=== PATIENT | male | born 1955 | race Caucasian/White ===

== ENCOUNTER 2017-07-31 08:52 | Emergency (ER) | payer MEDICAID ==
[2017-07-31 08:59] VITALS: PULSE 96; RESP 16; O2SAT 96
--- NOTE | 2017-07-31 09:55 | EDPHY ---
General Narrative: CHIEF COMPLAINT: Out of Neurontin, abdominal discomfort HISTORY OF PRESENT ILLNESS: Patient complains of being out of his Neurontin. He says that he ran out 1 week ago. He is not entirely sure what his dosing is, but says that he takes 5 of the pills that he has at night, and 3-4 them in the morning. This is due to neuropathy. He is normally prescribed a medication at [facility]. He says that there was a miscommunication with a refill that was not placed. He has called them and has an appointment tomorrow at 12:00 p.m.. He has no chest pain or shortness of breath. He does have some abdominal discomfort with this. His left foot has been twitching more than the right. He has no numbness or tingling. No difficulty ambulating. No incontinence of bowel or bladder. No other associated complaints or modifying factors. REVIEW OF SYSTEMS: Ten systems reviewed and are negative unless otherwise noted in the HPI PCP: [facility] SPECIALISTS: None PAST MEDICAL HISTORY: Prediabetic, bipolar disorder, peripheral neuropathy PAST SURGICAL HISTORY: Bilateral carpal tunnel release in 2015 SOCIAL HISTORY: Nonsmoker. No alcohol use. Daily marijuana use. Works as a metal painter FAMILY HISTORY: Noncontributory EXAMINATION General Appearance: Alert, no distress Head: normocephalic, atraumatic Eyes: Pupils equal and round, no conjunctival pallor or injection ENT, Mouth: Mucous membranes moist. Airway patent Neck: Normal inspection, supple, non-tender Respiratory: Lungs are clear to auscultation. No wheezing, rhonchi or crackles Cardiovascular: Regular rate and rhythm. No murmur Gastrointestinal: Abdomen is soft and nontender. No tympany. No rigidity. No distention. No guarding. Benign abdominal examination Neurological: GCS 15. Cranial nerves 2-12 grossly intact. A&O, nonfocal, normal gait. Strength is symmetric in all 4 limbs. Normal light sensation on the top of both feet. Normal light sensation on the bottom of both feet. Normal proprioception of the great toes Skin: Warm and dry, no rash. No petechiae or purpura Extremities: Nontender, no pedal edema Psychiatric: Mood and affect normal DIFFERENTIAL DIAGNOSES: Including but not limited to Neurontin withdrawal, neuropathy, paresthesia, electrolyte disturbance, lithium toxicity, dehydration, gastritis MDM: 9:50 a.m. Abdominal discomfort with twitching of the feet likely due to Neurontin withdrawal. The patient has been off of his Neurontin for 1 week. He has no chest pain or shortness of breath. His abdominal examination is completely benign. His vital signs were well within normal limits. I have consult to the pharmacy to perform a medication reconciliation to verify the dose he was on, and so that we can safely resume his medication at an appropriate dose. He is in no acute distress. Laboratory studies have been ordered. Because he is on lithium I will check the level for this. 10:08 a.m. Case discussed with the pharmacist. They have verified that the patient's dosing was 600 mg in the morning and 1200 mg at night of his gabapentin. They recommend that we resume this without change. I have ordered 600 mg dose by mouth. 11:12 a.m. Patient's laboratory studies are negative. The lithium level is pending. I have re-evaluated the patient is feeling well. 11:30 a.m. [place] level was within normal limits. He is discharged home stable condition. He will [facility] with an appointment that he had made. We discussed ED precautions. I suspect that all the symptoms related to abruptly stopping his Neurontin for the past week. We discussed returning to the emergency department for any worsening of his abdominal pain, for any onset of chest pain. He is comfortable this plan. I answered all his questions prior to discharge. SUPERVISION: Patient was independently examined, but I discussed the case with my secondary supervising physician Dr. Goldsmith - History Smoking Status: Former smoker - Objective Vital Signs: Initial Vital Signs Temperature (C) 98.1 F 07/31/17 08:56 Heart Rate 96 07/31/17 08:56 Respiratory Rate 16 07/31/17 08:56 Blood Pressure 135/78 H 07/31/17 08:56 O2 Sat (%) 96 07/31/17 08:56 O2 Delivery Mode Room Air Allergies/Adverse Reactions: No Known Allergies Allergy (Unverified 07/31/17 08:55) Home Medications: Medication Instructions Recorded Cyclobenzaprine [Flexeril 10 MG 10 mg PO BID 01/02/13 (RX)] Acetaminophen [Tylenol 325mg (*)] 325 mg PO DAILY PRN 07/31/17 Albuterol [Proventil Inhaler HFA 1 - 2 puffs IH Q4-6PRN PRN 07/31/17 (*)] Gabapentin [Neurontin 300 MG (*)] 1,200 mg PO HS 07/31/17 Gabapentin [Neurontin 300 MG (*)] 300 mg PO AD #180 cap 07/31/17 Gabapentin [Neurontin 300 MG (*)] 600 mg PO DAILY 07/31/17 [place] Carbonate [[place] 300 mg PO TID 07/31/17 Carbonate Cap 300 mg (*)] Multivitamins [Multivitamin (*)] 1 each PO DAILY 07/31/17 Departure - Departure Disposition: Home, Routine, Self-Care Clinical Impression: Neuropathy Condition: Good Instructions: Peripheral Neuropathy (ED) Additional Instructions: 1. Follow [facility] as scheduled [facility] 2. Resume your Neurontin as discussed and prescribed 3. ED precautions as discussed Referrals: [facility],. [Clinic] - As per Instructions Prescriptions: Gabapentin [Neurontin 300 MG (*)] 300 mg PO AD #180 cap
[2017-07-31] MEDS ORDERED: GABAPENTIN 300 MG CAP PO ONE (10:08)
[2017-07-31 10:12] LABS: % IMMATURE GRANULYOCYTES 0.3 % (0.0-1.1); ABSOLUTE IMMATURE GRANULOCYTES 0.03 10^3/uL (0.00-0.10); ADD DIFF? NO; ADD MORPH? NO; ADD SCAN? NO; ATYPICAL LYMPHOCYTE FLAG 0 (0-99); FRAGMENT RBC FLAG 0 (0-99); HEMATOCRIT 46.9 % (40.0-51.0); HEMOGLOBIN 16.9 g/dL (13.7-17.5); LEFT SHIFT FLG 0 (0-99); LIPEMIA HEMOLYSIS FLAG 90 (0-99); MEAN CELL HEMOGLOBIN 32.4 pg (27.9-34.1); MEAN CELL VOLUME 89.8 fL (81.5-99.8); MEAN PLATELET VOLUME 8.6 fL (8.7-11.7); PLATELET CLUMPS FLAG 0 (0-99); PLATELET COUNT 298 10^3/uL (150-400); RED BLOOD CELL COUNT 5.22 10^6/uL (4.40-6.38); RED CELL DISTRIBUTION WIDTH 13.1 % (11.5-15.2)
[2017-07-31 10:37] LABS: ALANINE AMINOTRANSFERASE 34 IU/L (21-72); ALBUMIN 4.3 g/dL (3.5-5.0); ALKALINE PHOSPHATASE 76 IU/L (38-126); ANION GAP 13 mEq/L (8-16); ASPARTATE AMINOTRANSFERASE 21 IU/L (17-59); BILIRUBIN,TOTAL 0.9 mg/dL (0.1-1.4); BILIRUBIN-CONJUGATED 0.3 mg/dL (0.0-0.5); BILIRUBIN-UNCONJUGATED 0.6 mg/dL (0.0-1.1); CALCIUM 10.1 mg/dL (8.5-10.4); CARBON DIOXIDE 19 mEq/l (22-31); CHLORIDE 110 mEq/L (97-110); CREATININE 0.9 mg/dL (0.7-1.3); GLOMERULAR FILTRATION RATE > 60; GLUCOSE 86 mg/dL (70-100); POTASSIUM 4.7 mEq/L (3.5-5.2); SODIUM 142 mEq/L (134-144); TOTAL PROTEIN 7.1 g/dL (6.3-8.2)
[2017-07-31 11:01] LABS: LITHIUM 0.6 mEq/L (0.6-1.2)
[2017-07-31 11:20] VITALS: BP 116/91; TEMP 98.8
== END 2017-07-31 11:19 | disposition home or self-care (01) ==
DX: G62.9 Polyneuropathy, unspecified (principal); Z87.891 Personal history of nicotine dependence

== ENCOUNTER → 2017-12-24 | Outpatient (CLI) | payer MEDICAID | LOC: FIMAGING 15:41 | DX: Z11.1 Encounter for screening for respiratory tuberculosis (principal); R76.11 Nonspecific reaction to tuberculin skin test without active tuberculosis; J98.4 Other disorders of lung; M89.38 Hypertrophy of bone, other site ==

== ENCOUNTER → 2017-12-30 | Outpatient (CLI) | payer MEDICAID | LOC: FIMAGING 10:12 | DX: J98.4 Other disorders of lung (principal); R76.11 Nonspecific reaction to tuberculin skin test without active tuberculosis ==

== ENCOUNTER 2018-02-25 10:30 | Emergency (ER) | payer MEDICAID ==
[2018-02-25 10:49] VITALS: BP 118/83
--- NOTE | 2018-02-25 11:27 | EDPHY ---
H & P Stated Complaint: patches of itchy rash area x 9 days Time Seen by Provider: 02/25/18 11:10 HPI/ROS: CHIEF COMPLAINT: Pruritic rash bilateral legs x9 days HISTORY OF PRESENT ILLNESS: The patient presents to the ED with a pruritic rash to his legs for the past 9 days. The patient reports he was exposed to poison terra. The patient denies significant past medical history. He has been using calamine lotion without improvement of his symptoms. The patient denies any upper extremity rash, fever, cough, abdominal pain, vomiting or additional medical complaints. REVIEW OF SYSTEMS: A comprehensive 10 point review of systems is otherwise negative aside from elements mentioned in the history of present illness. Source: Patient Exam Limitations: No limitations - Personal History Tetanus Vaccine Date: 2009 - Medical/Surgical History Hx Asthma: Yes Hx Chronic Respiratory Disease: No Hx Diabetes: No Hx Cardiac Disease: No Hx Renal Disease: No Hx Cirrhosis: No Hx Alcoholism: Yes Hx HIV/AIDS: No Hx Splenectomy or Spleen Trauma: No Other PMH: mental health, pre diabetic. psh- carpal tunnel, hemorrhoid - Social History Smoking Status: Former smoker - Physical Exam Exam: General Appearance: Alert, no distress Eyes: Pupils equal and round no pallor or injection ENT, Mouth: Poor dentition Respiratory: There are no retractions, lungs are clear to auscultation Cardiovascular: Regular rate and rhythm Gastrointestinal: Abdomen is soft and nontender, no masses, bowel sounds normal Neurological: 5/5 strength all 4 extremities Skin: Rash on lower extremities consistent with contact dermatitis Musculoskeletal: Neck is supple nontender Extremities: symmetrical, full range of motion Constitutional: Initial Vital Signs Temperature (C) 37.0 C 02/25/18 10:47 Heart Rate 88 02/25/18 10:47 Respiratory Rate 18 02/25/18 10:47 Blood Pressure 118/83 H 02/25/18 10:47 O2 Sat (%) 97 02/25/18 10:47 O2 Delivery Mode Room Air Allergies/Adverse Reactions: No Known Allergies Allergy (Verified 02/25/18 10:46) Home Medications: Medication Instructions Recorded Cyclobenzaprine [Flexeril 10 MG 10 mg PO BID 01/02/13 (RX)] Acetaminophen [Tylenol 325mg (*)] 325 mg PO DAILY PRN 07/31/17 Albuterol [Proventil Inhaler HFA 1 - 2 puffs IH Q4-6PRN PRN 07/31/17 (*)] Gabapentin [Neurontin 300 MG (*)] 1,200 mg PO HS 07/31/17 Gabapentin [Neurontin 300 MG (*)] 300 mg PO AD #180 cap 07/31/17 Gabapentin [Neurontin 300 MG (*)] 600 mg PO DAILY 07/31/17 [place] Carbonate [[place] 300 mg PO TID 07/31/17 Carbonate Cap 300 mg (*)] Multivitamins [Multivitamin (*)] 1 each PO DAILY 07/31/17 predniSONE [prednisone 20mg (RX)] 3 tab PO AD #24 tab 02/25/18 Medical Decision Making ED Course/Re-evaluation: The patient presents to the ED with a rash secondary to contact dermatitis from poison terra. The patient will be started on oral steroids with a tapering dose for the next 12 days. Departure - Departure Disposition: Home, Routine, Self-Care Clinical Impression: Contact dermatitis Condition: Good Instructions: Contact Dermatitis (ED), Poison Terra (ED) Additional Instructions: 1. Take prednisone as directed for next 12 days. 2. Return to the ED for markedly worsening symptoms, fever, pain or other concerns. 3. Please follow up with your primary care provider for a recheck in the next 1- 2 weeks. Referrals: [facility] [Other] - As per Instructions
== END 2018-02-25 11:40 | disposition home or self-care (01) ==
DX: L25.9 Unspecified contact dermatitis, unspecified cause (principal); J45.909 Unspecified asthma, uncomplicated; Z87.891 Personal history of nicotine dependence

== ENCOUNTER 2018-04-21 08:43 | Emergency (ER) | payer MEDICAID ==
[2018-04-21] MEDS ORDERED: OXYCODONE/APAP 5/325 TAB PO ONE (09:08)
--- NOTE | 2018-04-21 09:08 | EDPHY ---
H & P Stated Complaint: umbilical hernia repair 04/16 ecchymosis and pain Time Seen by Provider: 04/21/18 08:51 HPI/ROS: CHIEF COMPLAINT: Postoperative pain HISTORY OF PRESENT ILLNESS: This is a 63-year-old male who is postop day number 4 status post repair of umbilical hernia (04/16/18) by Dr. Olmos. He presents this morning concerned about increasing pain in the region of his umbilicus. Yesterday the pain seemed to worsen. He has been taking oxycodone 3 times daily and states that he has 3 tablets left. He has not taken any pain medications since last night. He has had no drainage from the wound. He does notice surrounding bruising. No fever. No nausea or vomiting. He is moving his bowels regularly and urinating without difficulty. REVIEW OF SYSTEMS: A ten system review of systems was performed and is negative with the exception of the items mentioned in the HPI. Past medical history: 1. Umbilical hernia 2. Hypothyroidism 3. 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 He quit smoking decades ago. General Appearance: Alert. Vital signs reviewed. Eyes: Pupils equal and round, no conjunctival injection, no discharge. Anicteric. ENT, Mouth: Mucous membranes are moist, dentition in poor repair Respiratory: Lungs are clear to auscultation; no wheezes, rales, or rhonchi. Cardiovascular: Regular rate and rhythm; no murmur, rub, or gallop. Gastrointestinal: Abdomen is soft. There is purple/L ecchymoses surrounding the umbilicus and extending to radius of 6 cm. Skin glue visible around the umbilicus. No palpable herniation. He states that it is tender when I palpate around the surgical site--I feel no masses or abnormalities and he speaks with me throughout the exam. Skin: Warm and dry, no rashes on exposed skin, normal color. Neurological: Alert and oriented. Moving all four extremities easily and equally. Psychiatric: Normal affect. - Personal History Current Tetanus Diphtheria and Acellular Pertussis (TDAP): Yes Tetanus Vaccine Date: 2009 - Medical/Surgical History Hx Asthma: Yes Hx Chronic Respiratory Disease: No Hx Diabetes: No Hx Cardiac Disease: No Hx Renal Disease: No Hx Cirrhosis: No Hx Alcoholism: Yes Hx HIV/AIDS: No Hx Splenectomy or Spleen Trauma: No Other PMH: mental health, pre diabetic. psh- carpal tunnel, hemorrhoid cva. umbilical hernia repair - Social History Smoking Status: Former smoker Constitutional: Initial Vital Signs Temperature (C) 37.1 C 04/21/18 08:46 Heart Rate 94 04/21/18 08:46 Respiratory Rate 17 04/21/18 08:46 Blood Pressure 157/131 H 04/21/18 08:46 O2 Sat (%) 95 04/21/18 08:46 O2 Delivery Mode Room Air Allergies/Adverse Reactions: No Known Allergies Allergy (Verified 04/21/18 08:45) Home Medications: Medication Instructions Recorded Cyclobenzaprine [Flexeril 10 MG 10 mg PO TID PRN 01/02/13 (*)] Albuterol [Proventil Inhaler HFA 1 - 2 puffs IH Q4-6PRN PRN 07/31/17 (*)] Gabapentin [Neurontin 300 MG (*)] 1,200 mg PO HS 07/31/17 Gabapentin [Neurontin 300 MG (*)] 600 mg PO DAILY 07/31/17 [place] Carbonate [[place] 300 mg PO TID 07/31/17 Carbonate Cap 300 mg (*)] Multivitamins [Multivitamin (*)] 1 each PO DAILY 07/31/17 Cetirizine [ZyrTEC 10 mg (*)] 10 mg PO DAILY 04/16/18 Diclofenac Sodium [Voltaren 75 MG 75 mg PO BID PRN 04/16/18 (*)] Gemfibrozil [Lopid 600 MG (*)] 600 mg PO BIDAC 04/16/18 Hydrocodone/APAP 5/325 [[place] 1 - 2 tab PO Q4HRS PRN #30 tab 04/16/18 5/325 (*)] Triamcinolone 0.1% [Triamcinolone 1 cam[place] TP BID 04/16/18 0.1% Cream (*)] Oxycodone HCl 5 mg PO Q6 PRN #15 capsule 04/21/18 Medical Decision Making ED Course/Re-evaluation: Patient is concerned about pain at the site of his surgical incision. I find nothing concerning at the time of my exam. I have spoken with his surgeon, Dr. Olmos, and based upon my description of the wound he agrees that this patient can be discharged home with reassurance. The patient was reassured and felt comfortable returning home. I do not find evidence of any wound dehiscence, infection such as abscess or cellulitis, and do not think that there is recurrent hernia. - Data Points Medications Given: Discontinued Medications Oxycodone/Acetaminophen (Percocet 5/325) 1 tab PO EDNOW ONE Stop: 04/21/18 09:09 Last Admin: 04/21/18 09:12 Dose: 1 tab Departure - Departure Disposition: Home, Routine, Self-Care Clinical Impression: Postoperative abdominal pain Abdominal pain Qualifiers: Abdominal location: periumbilical Qualified Code(s): R10.33 - Periumbilical pain Condition: Good Instructions: Pain Management (ED) Additional Instructions: Your blood pressure was high in the emergency department. Please have this rechecked by her primary care doctor. Be sure that you keep your appointment with Dr. Olmos. If you develop fever, severe persistent abdominal pain, vomiting, redness or warmth of the incision, drainage from the incision--you should contact Dr. Olmos and be re-evaluated. I am writing you another prescription for pain medication. Use it as you have been using the pain medication prescribed by Dr. Olmos. You will not be able to receive another prescription for pain medicine from the emergency department. Referrals: Chris Carty PA [Primary Care Provider] - As per Instructions Moises Olmos MD [Medical Doctor] - As per Instructions Prescriptions: Oxycodone HCl 5 mg PO Q6 PRN #15 capsule PRN Reason: Pain, Breakthrough
[2018-04-21 10:12] VITALS: BP 164/104
== END 2018-04-21 10:39 | disposition home or self-care (01) ==
DX: G89.18 Other acute postprocedural pain (principal); R10.9 Unspecified abdominal pain; Z87.891 Personal history of nicotine dependence

== ENCOUNTER 2018-10-05 06:51 | Emergency (ER) | payer MEDICAID, OTHER ==
--- NOTE | 2018-10-05 06:59 | EDPHY ---
H & P Time Seen by Provider: 10/05/18 06:55 - Personal History Tetanus Vaccine Date: 2009 - Medical/Surgical History Hx Asthma: Yes Hx Chronic Respiratory Disease: No Hx Diabetes: No Hx Cardiac Disease: No Hx Renal Disease: No Hx Cirrhosis: No Hx Alcoholism: Yes Hx HIV/AIDS: No Hx Splenectomy or Spleen Trauma: No Other PMH: mental health, pre diabetic. psh- carpal tunnel, hemorrhoid cva. umbilical hernia repair - Social History Smoking Status: Former smoker Allergies/Adverse Reactions: No Known Allergies Allergy (Verified 04/21/18 08:45) Home Medications: Medication Instructions Recorded Cyclobenzaprine [Flexeril 10 MG 10 mg PO TID PRN 01/02/13 (*)] Albuterol [Proventil Inhaler HFA 1 - 2 puffs IH Q4-6PRN PRN 07/31/17 (*)] Gabapentin [Neurontin 300 MG (*)] 1,200 mg PO HS 07/31/17 Gabapentin [Neurontin 300 MG (*)] 600 mg PO DAILY 07/31/17 [place] Carbonate [[place] 300 mg PO TID 07/31/17 Carbonate Cap 300 mg (*)] Multivitamins [Multivitamin (*)] 1 each PO DAILY 07/31/17 Cetirizine [ZyrTEC 10 mg (*)] 10 mg PO DAILY 04/16/18 Diclofenac Sodium [Voltaren 75 MG 75 mg PO BID PRN 04/16/18 (*)] Gemfibrozil [Lopid 600 MG (*)] 600 mg PO BIDAC 04/16/18 Hydrocodone/APAP 5/325 [[place] 1 - 2 tab PO Q4HRS PRN #30 tab 04/16/18 5/325 (*)] Triamcinolone 0.1% [Triamcinolone 1 [place] TP BID 04/16/18 0.1% Cream (*)] Oxycodone HCl 5 mg PO Q6 PRN #15 capsule 04/21/18 Medical Decision Making ED Course/Re-evaluation: CHIEF COMPLAINT: Feels like psych meds are not working HISTORY OF PRESENT ILLNESS: 63-year-old homeless gentleman who was just [facility]. It is extremely cold outside. He called the ambulance because he is feeling like his psychiatric meds are not working well for him. Consequently, he was brought to the hospital. He has several other nonspecific in chronic complaints but mainly he states that he wants to have his psychiatric meds reviewed because they are not working any feels anxious. REVIEW OF SYSTEMS: A comprehensive 10 system review of systems is otherwise negative aside from elements mentioned in the history of present illness and medical decision making. PHYSICAL EXAM: HR, BP, O2 Sat, RR. Temp noted General Appearance: Alert, well hydrated, appropriate, and non-toxic appearing. Head: Atraumatic without scalp tenderness or obvious injury Eyes: Pupils equal, round, reactive to light and accommodation, EOMI, no trauma , no injection. Ears: Clear bilaterally, no perforation, normal landmarks Nose: Atraumatic, no rhinorrhea, clear. Throat: There is no erythema or exudates, no lesions, normal tonsils, mucus membranes moist. Neck: Supple, 2+ carotid upstroke, nontender, no lymphadenopathy. Respiratory: No retractions, no distress, no wheezes, and no accessory muscle use. Lungs are clear to auscultation bilaterally. Cardiovascular: Regular rate and rhythm, no murmurs, rubs, or gallops. Bilateral carotid, radial, dorsalis pedis, and posterior tibial pulses intact. Good capillary refill all extremities. Gastrointestinal: Abdomen is soft, nontender, non-distended, no masses, no rebound, no guarding, no peritoneal signs. Musculoskeletal: Normal active ROM of all extremities, atraumatic. Neurological: Alert, appropriate, and interactive. The patient has normal DTRs and non-focal cranial nerves, motor, sensory, and cerebellar exam. Skin: No rashes, good turgor, no nodules on palpation. Past medical history: Psychiatric problems Past surgical history: Noncontributory Family history: Noncontributory Social history: Homeless, unemployed, denies tobacco or alcohol or drug use and claims sobriety for the last 25 years. DIAGNOSTICS/PROCEDURES/CRITICAL CARE TIME: Not indicated DIFFERENTIAL DIAGNOSIS: Includes but is not limited to: Generalized anxiety, medication problems, malingering, noncompliance with medicines MEDICAL DECISION MAKING: This patient is here because extremely cold outside he is homeless. He thinks that he would like some psychiatric medications adjusted. I am discharging him immediately to the outpatient mental health services where he can get the evaluation that he needs. Departure - Departure Disposition: Home, Routine, Self-Care Clinical Impression: Anxiety, Malingering Condition: Good Instructions: Mood Disorders (ED) Additional Instructions: We are sending you in the cab to mental health outpatient services Referrals: Patient,NotPresent [Primary Care Provider] - As per Instructions
[2018-10-05 07:13] VITALS: BP 159/89
== END 2018-10-05 07:13 | disposition home or self-care (01) ==
LOC: EDUNIT#
DX: F41.9 Anxiety disorder, unspecified (principal); Z76.5 Malingerer [conscious simulation]; Z59.0 Homelessness